=== PATIENT | female | born 1965 ===

== ENCOUNTER 2017-08-16 16:45 | Emergency (ER) | payer MEDICARE, MEDICAID ==
[2017-08-16 16:51] VITALS: RESP 18
--- NOTE | 2017-08-16 18:46 | ED PDOC ---
Lower Extremity Pain/Injury Time Seen by Provider: 08/16/17 16:58 Chief Complaint (Nursing): Lower Extremity Problem/Injury Chief Complaint (Provider): foot pain History Per: Patient History/Exam Limitations: no limitations Onset/Duration Of Symptoms: Days (1 month) Current Symptoms Are (Timing): Still Present Severity: Moderate Additional Complaint(s): 51yo female c/o bilateral foot pain x3-4 weeks denies trauma, pain diffuse to foot also notes some low back pain but denies foot pain is related. Denies fever , weakness or skin changes. Denies hx DM. Past Medical History Reviewed: Historical Data, Nursing Documentation, Vital Signs Vital Signs: Last Vital Signs Temp 97.9 F 08/16/17 16:48 Pulse 73 08/16/17 16:48 Resp 18 08/16/17 16:48 BP 177/90 H 08/16/17 16:48 Pulse Ox 96 08/16/17 16:48 - Medical History PMH: Arthritis, Asthma, Gastritis - Family History Family History: States: Unknown Family Hx - Immunization History Hx Tetanus Toxoid Vaccination: No Hx Influenza Vaccination: No Hx Pneumococcal Vaccination: No - Home Medications Home Medications: Ambulatory Orders Medication Instructions Recorded Nitrofurantoin Macrocrystals 100 mg PO Q12 #14 cap 11/03/14 [Macrobid] Omeprazole 40 mg PO DAILY 11/03/14 oxyCODONE/Acetaminophen [Percocet 1 tab PO Q6 #15 tab 11/03/14 5/325 mg Tab] Ciprofloxacin [Cipro] 1 tab PO BID #14 tab 04/28/16 Tamsulosin [Flomax] 0.4 mg PO DAILY #7 cap 04/28/16 oxyCODONE/Acetaminophen [Percocet 1 tab PO QID PRN #14 tab 04/28/16 5/325 mg Tab] Naproxen [Naprosyn] 500 mg PO BID PRN #14 tablet 08/16/17 - Allergies Allergies/Adverse Reactions: Allergies Allergy/AdvReac Type Severity Reaction Status Date / Time No Known Allergies Allergy Verified 08/16/17 16:47 Review of Systems ROS Statement: Except As Marked, All Systems Reviewed And Found Negative Constitutional: Negative for: Fever Cardiovascular: Negative for: Chest Pain Respiratory: Negative for: Shortness of Breath Gastrointestinal: Negative for: Nausea Genitourinary Female: Negative for: Dysuria Musculoskeletal: Positive for: Back Pain, Foot Pain. Negative for: Arm Pain, Leg Pain Skin: Negative for: Rash, Lesions Neurological: Negative for: Weakness, Numbness, Headache Physical Exam - Reviewed Nursing Documentation Reviewed: Yes Vital Signs Reviewed: Yes - Physical Exam Appears: Positive for: Well, Non-toxic Head Exam: Positive for: ATRAUMATIC Skin: Positive for: Normal Color, Warm, Dry Respiratory: Negative for: Respiratory Distress Extremity: Positive for: Normal ROM, Tenderness (foot b.l nonfocal no skin breakdown, poor nail hygiene mild erythema interdigits +DP pulses). Negative for: Pedal Edema, Deformity, Swelling Neurologic/Psych: Positive for: Alert, chief revenue officer II-XII, Oriented. Negative for: Motor/Sensory Deficits - ECG O2 Sat by Pulse Oximetry: 96 Medical Decision Making Medical Decision Making: XRays performed and no acute fracture or dislocation Podiatry consult performed, followup Dr Mayfield who she has seen prior, tomorrow. Rx naprosyn. Gait normal on discharge. Disposition - Clinical Impression Clinical Impression: Joint pain, Foot pain - Patient ED Disposition Is Patient to be Admitted: No Counseled Patient/Family Regarding: Studies Performed, Diagnosis, Need For Followup, Rx Given - Disposition Referrals: Antoine Mayfield DPM [Family Provider] - Disposition: Routine/Home Disposition Time: 18:10 Condition: STABLE Additional Instructions: Followup with podiatry tomorrow as directed. Use naprosyn for pain 2x daily, take with small amount food. Prescriptions: Naproxen [Naprosyn] 500 mg PO BID PRN #14 tablet PRN Reason: Pain, Moderate (4-7) Instructions: Metatarsalgia (DC), Joint Pain Forms: [facility] ([place]ian)
[2017-08-16 19:40] VITALS: BP 144/95; PULSE 63; TEMP 98.3
--- NOTE | 2017-08-16 20:55 | CP.PCM.CON ---
History of Present Illness - History of Present Illness History of Present Illness: Podiatry Consult Note for Dr. Mayfield 51F w/ PMH asthma and gastritis seen in ED complaining of bilateral foot pain. Patient states that the pain has been bothering her for years. She states that the worst pain is along the bottom of both feet and along the lateral borders. She states that the pain is constant and she is not able to stay on her feet for long periods of time. She states that the pain has continuously gotten worse since its onset. She also says that she has tried multiple OTC pain medications with no relief. She has been seen by Dr. Mayfield in the past who sent her for NCV studies which she never had done. She does state that warm water soaks does offer her some relief. Patient is AAO x 3 and NAD at time of visit. Denies any further pedal complaints. Denies any recent trauma to her feet. Denies any N/V/F/C/CP/SOB/D/posterior calf pain when squeezed Meds: See MAR All: NKDA PSH: B/l knees FHx: Unremarkable SHx: Denies tobacco use and illicit drug use, drinks socially on the weekends, unemployed Review of Systems - Review of Systems All systems: reviewed and no additional remarkable complaints except Review of Systems: as per HPI Past Patient History - Infectious Disease Hx of Infectious Diseases: None - Past Social History Smoking Status: Never Smoked - PULMONARY Hx Asthma: Yes - MUSCULOSKELETAL/RHEUMATOLOGICAL Hx Arthritis: Yes - GASTROINTESTINAL Hx Gastritis: Yes - PSYCHIATRIC Hx Substance Use: No - SURGICAL HISTORY Hx Surgeries: Yes Other/Comment: left eye surgery. bilateral knee surgery done last year. - ANESTHESIA Hx Anesthesia: Yes Hx Anesthesia Reactions: No Hx Malignant Hyperthermia: No Meds Home Medications: Home Medication List Medication Instructions Recorded Confirmed Type Naproxen [Naprosyn] 500 mg PO BID PRN #14 tablet 08/16/17 Rx Allergies/Adverse Reactions: Allergies Allergy/AdvReac Type Severity Reaction Status Date / Time No Known Allergies Allergy Verified 08/16/17 16:47 Physical Exam - Constitutional Appears: Well, Non-toxic, No Acute Distress - Head Exam Head Exam: ATRAUMATIC, NORMOCEPHALIC - Extremities Exam Additional comments: B/l LE focused exam: Vasc: DP/PT pulses fully palpable 2/4 b/l. Skin temperature warm to warm from proximal to distal. CFT < 3 seconds to all digits. No edema noted b/l Neuro: Epicritic and protective sensation grossly intact b/l Derm: No open lesions, wounds, maceration, xerosis, abnormal pigmentation or abnormal growths noted b/l MSK: POP along plantar arch and at sinus tarsi b/l. Negative tinel sign. Patient unable to perform single or double heel rise. B/l hallux noted to be significantly shorter than second digits - Neurological Exam Neurological exam: Alert, Oriented x3 - Psychiatric Exam Psychiatric exam: Normal Affect, Normal Mood Results - Vital Signs Recent Vital Signs: Last Vital Signs Temp 98.3 F 08/16/17 19:39 Pulse 63 08/16/17 19:39 Resp 18 08/16/17 19:39 BP 144/95 H 08/16/17 19:39 Pulse Ox 100 08/16/17 19:39 Assessment & Plan - Assessment and Plan (Free Text) Assessment: 51F seen in ED for painful b/l pes planus deformity Plan: Patient seen and evaluated Plan discussed with attending Dr. Mayfield Afebrile B/l xrays reveiwed: No evidence of acute fracture, dislocation or osteoarthritis Patient advised to purchase and wear rigid inserts to help alleviate her pain Patient advised to continue warm water soaks Patient to follow up with Dr. Mayfield in his office tomorrow for continued recommendations and foot care - Date & Time Date: 08/16/17 Time: 20:59
--- NOTE | 2017-08-17 07:25 | RAD ---
PROCEDURE: Bilateral Feet Radiographs. HISTORY: foot pain b/l COMPARISON: None. FINDINGS: BONES: No acute fracture or destructive bony lesion identified. JOINTS: Right Foot: Normal. No osteoarthritis. Left Foot: Normal. No osteoarthritis. SOFT TISSUES: Right Foot: Moderate plantar calcaneal spur identified. Left Foot: Normal. OTHER FINDINGS: None. IMPRESSION: No acute fracture dislocation bilaterally. No destructive bony lesion bilaterally. Moderate plantar calcaneal spur right calcaneus.
[2017-08-17 17:01] VITALS: O2SAT 96
== END 2017-08-16 19:42 | disposition home or self-care (01) ==
LOC: H.ER 16:45
DX: M77.31 Calcaneal spur, right foot (principal)
CPT/HCPCS: 73630; 96372; 99283; J1885